=== PATIENT | male | born 1970 | race African-American/Black ===

== ENCOUNTER 2016-11-15 18:07 | Emergency (ER) ==
[2016-11-15 18:42] LABS: URINE SOURCE CLEAN CATCH
[2016-11-15 18:52] LABS: BILIRUBIN URINE NEGATIVE (NEGATIVE); BLOOD URINE TRACE (NEGATIVE); CLARITY CLEAR (CLEAR); COLOR YELLOW; GLUCOSE URINE NEGATIVE (NEGATIVE); LEUKOCYTES URINE 1+ (NEGATIVE); NITRITE URINE NEGATIVE (NEGATIVE); PROTEIN URINE TRACE mg/dL (NEGATIVE); SP GRAVITY URINE 1.025; UROBILINOGEN URINE NORMAL
[2016-11-15 18:57] LABS: URINE CULTURE PL NEEDED? YES; URINE EPITHELIAL CELLS <10 /HPF (<10); URINE RBC <10 /HPF (<10); URINE WBC TNTC /HPF (<10)
[2016-11-15] MEDS ORDERED: FLAGYL PO ONE (18:59)
[2016-11-15] MEDS ORDERED: ROCEPHIN IM ONE (18:59)
[2016-11-15] MEDS ORDERED: ZITHROMAX PO ONE (18:59)
[2016-11-15] MEDS ORDERED: XYLOCAINE-MPF 1% INJ ONE (18:59)
--- NOTE | 2016-11-15 19:02 | PROVIDER DOCUMENTATION ---
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 exam Original Note: HPI-Male Problem <Hiwot Rangel - Last Filed: 11/15/16 19:02> - General Source: patient - History of Present Illness-Male Location of Complaint: reports: urethral Radiation: reports: none Quality of Pain: reports: burning Severity in ED: reports: moderate Onset/Duration: reports: 2 days ago Timing: reports: still present Context/Activities at Onset: reports: sexual activity Urinary Symptoms: reports: no symptoms Contraception: reports: none Associated Symptoms: reports: penile discharge Similar Symptoms Previously?: No Recently seen or treated by another doctor?: No <Kiet Perez - Last Filed: 11/15/16 19:15> - General Chief Complaint: Male Stated Complaint: MALE /STITCH REMOVE Time Seen by Provider: 11/15/16 18:53 Allergies/Adverse Reactions: Patient Allergies Allergy/AdvReac Type Severity Reaction Status Date / Time No Known Allergies Allergy Verified 11/15/16 18:24 Home Medications: Home Medication List Medication Instructions Recorded Confirmed Last Taken Type No Home Medications 08/11/16 11/15/16 Unknown History - History of Present Illness-Male Nature of Presenting Problem: 46 YOBLKM PRESENTS TO ED WITH C/O PT STATES 2 DAYS HX OF PENILE DISCHARGE. PT STATES HE HAS HAD UNPROTECTED SEX RECENTLY. (Kiet Perez) Review of Systems - Adult - REVIEW OF SYSTEMS - ADULT Constitutional: denies: chills, fever Eyes: reports: no symptoms reported Ears, Nose, Mouth & Throat: reports: no symptoms reported Cardiovascular: denies: chest pain, palpitations, syncope Respiratory: denies: cough, shortness of breath, wheezing Gastrointestinal: denies: abdominal pain, diarrhea, nausea, vomiting Genitourinary: reports: discharge Musculoskeletal: denies: back pain, neck pain Integumentary: reports: no symptoms reported Neurological: denies: dizziness/vertigo, headache/migraines, syncope Psychiatric: reports: no symptoms reported Endocrine: reports: no symptoms reported Hematologic/Lymphatic: reports: no symptoms reported Allergic/Immunologic: reports: no symptoms reported All Other Systems: Reviewed and Negative <Kiet Perez - Last Filed: 11/15/16 19:15> Past History - Adult - PAST MEDICAL HISTORY-ADULT Review of Records: reports: Nursing Assessment Review, Medications Reviewed - IMMUNIZATION STATUS Childhood Immunizations: See Nurse Assessment Flu Vaccine: See Nurse Assessment - SOCIAL HISTORY Smoking: cigar, less than 1 pack/day Provider spent 3-5 mins advising pt. on dangers of tobacco.: Discussed manners to quit use, and f/u contacts for add'l counseling. Substance Use: alcohol Alcohol Use Frequency: twice a week Number of drinks per typical drinking period:: 2 drinks Living Situation: alone <ZiKiet - Last Filed: 11/15/16 19:15> Physical Exam-General - CONSTITUTIONAL General Appearance: alert, mild distress - EYES Eyes: PERRL/EOMI, pink conjunctivae - HEAD, EARS, NOSE, MOUTH & THROAT HENMT: normocephalic/atraumatic, moist mucous membranes - NECK Neck: non-tender, full range of motion, supple - RESPIRATORY Respiratory: chest non-tender, lungs clear, normal breath sounds - CARDIOVASCULAR Cardiovascular: normal peripheral pulses, tachycardia - GASTROINTESTINAL (ABDOMEN) Abdominal Exam: normal bowel sounds, non tender, soft - GENITOURINARY Male Genitalia: circumcised. negative: herpes-like lesion, hernia mass, scrotal swelling, urethral discharge, inguinal tenderness, testicular tenderness - LYMPHATIC Lymphatic: no adenopathy - MUSCULOSKELETAL Back Exam: normal inspection, no CVA tenderness, no vertebral tenderness Extremity: normal range of motion, non-tender - SKIN Integumentary: normal color, normal turgor, warm/dry - NEUROLOGIC Neurologic: grossly normal - PSYCHIATRIC Psych/Mental Status: oriented x 3 <Kiet Perez - Last Filed: 11/15/16 19:15> Progress <Hiwot Rangel - Last Filed: 11/15/16 19:02> <Kiet Perez - Last Filed: 11/15/16 19:15> - PLAN OF CARE/RESULTS Progress/Plan/Lab Results: Vital Signs Temp Pulse Resp BP Pulse Ox 11/15/16 18:20 98.6 F 118 H 18 156/86 96 No Known Allergies Allergy (Verified 11/15/16 18:24) No Home Medications 08/11/16 Laboratory 11/15/16 18:27 Urine Source CLEAN CATCH Urine Color YELLOW Urine Clarity CLEAR Urine pH 5.0 Ur Specific [place] 1.025 Urine Protein TRACE A Urine Ketones NEGATIVE Urine Blood TRACE Urine Nitrite NEGATIVE Urine Bilirubin NEGATIVE Urine Urobilinogen NORMAL Urine Microscopic RBC <10 Urine WBC 1+ A Urine Microscopic WBC TNTC A Ur Epithelial Cells <10 Urine Bacteria NEGATIVE Urine Glucose NEGATIVE Orders Category Date Time Status URINALYSIS PL W/POSS RFLX CULT [URINALYSIS] Stat Lab 11/15/16 18:27 Completed URINE CULTURE [RM] Routine Lab 11/15/16 18:58 Ordered Azithromycin [Zithromax] Med 11/15/16 18:59 Discontinued 1,000 mg PO NOW ONE CefTRIAXONE [Rocephin] Med 11/15/16 18:59 Discontinued 250 mg IM NOW ONE Lidocaine 1% Pf [Xylocaine-Mpf 1%] Med 11/15/16 18:59 Discontinued 5 ml INJ NOW ONE Metronidazole [Flagyl] Med 11/15/16 18:59 Discontinued 2,000 mg PO NOW ONE (Hiwot Rangel) Departure - Departure Time of Disposition Order: 19:02 Certified Medical Emergency: Emergent <Hiwot Rangel - Last Filed: 11/15/16 19:02> <Kiet Perez - Last Filed: 11/15/16 19:15> - Departure DIAGNOSIS: STD (male) Additional Instructions: ED Follow Up Instructions: You have been treated by a care provider in the Emergency Department. These instructions are being provided to you so you can have an understanding of how to care for yourself upon discharge. Upon discharge from the Emergency Department, you are responsible for making arrangements for follow-up care by a physician of your choice. Take all prescribed medications as directed. Return to the Emergency Department immediately for any new or worsening symptoms. You may call the Physician Referral phone number at [phone] to obtain a list of Physicians who are taking new patients. Referrals: None,PCP [Primary Care Provider] - Nava Nguyen MD [STAFF PHYSICIAN] - Forms: Return to School/Parent Work Instructions: Sexually Transmitted Disease, [id number] Attestation - Scribe Verification/Attestation Scribe:: Kiet Perez Acting as Scribe for:: Hiwot Rangel Scribe documention review:: This chart was documented by a scribe and accurately reflects the service the provider performed and the decisions made by the provider. <Kiet Perez - Last Filed: 11/15/16 19:15> Physician Attestation
[2016-11-15] MEDS ORDERED: FLAGYL ONE (19:04)
[2016-11-15 19:33] VITALS: BP 145/88
== END 2016-11-15 19:32 | disposition home or self-care (01) ==
LOC: P.ED 18:07
DX: A64 Unspecified sexually transmitted disease (principal); R36.9 Urethral discharge, unspecified; R00.0 Tachycardia, unspecified; F17.290 Nicotine dependence, other tobacco product, uncomplicated; Z71.6 Tobacco abuse counseling
CPT/HCPCS: 81001; 87088; 96372; J0696